=== PATIENT | male | born 1965 | race Caucasian/White ===

== ENCOUNTER → 2019-04-01 | Outpatient (CLI) | payer BC ==
[~2019-04-01] MED LIST: ASPI-1005 PO; LOSA50TA64 PO; METO25TA6 PO; ROSU10TA28 PO; WARF4TAB72 PO
== END | disposition home or self-care (01) ==
LOC: RAH 13:21
PROVIDERS: ATTEND Internal Medicine Nephrology
DX: R59.0 Localized enlarged lymph nodes (principal); J33.8 Other polyp of sinus
CPT/HCPCS: 70490

== ENCOUNTER 2020-08-06 09:22 | Inpatient (IN) | payer BC ==
[~2020-08-06] VITALS: Ht 177.8 cm; Wt 99.2 kg
[2020-08-06] MEDS ORDERED: MORPHINE 4 MG SYG ONE (09:41)
[2020-08-06] MEDS ORDERED: ONDANSETRON 4MG INJ ONE ×3 (09:41→12:30)
[2020-08-06 09:42] LABS: BASOPHILS % (AUTO) 0.1 % (0.0-5.0); LYMPHOCYTES % (AUTO) 4.3 % (21.0-51.0); MEAN CORPUSCULAR HEMOGLOBIN 29.5 pg (27.0-33.0); MEAN CORPUSCULAR HGB CONC 32.2 g/dL (32.0-36.0); MEAN CORPUSCULAR VOLUME 91.6 fL (79-99); MONOCYTES % (AUTO) 5.4 % (3.0-13.0); NEUTROPHILS % (AUTO) 89.8 % (40.0-77.0); PLATELET COUNT (AUTO) 215 K/uL (130-400); RED BLOOD CELL COUNT(AUTO) 4.04 MIL/uL (4.50-6.20); RED CELL DISTRIBUTION WIDTH 14.5 % (11.0-15.5)
[2020-08-06 09:50] LABS: APPEARANCE,URINE Cloudy (CLEAR); BILIRUBIN,URINE Small (NEGATIVE); COLOR,URINE Dark Yellow (YELLOW); GLUCOSE, URINE (UA) Negative (NEGATIVE); KETONES,URINE Trace mg/dL (NEGATIVE); LEUKOCYTE ESTERASE ,URINE Trace (NEGATIVE); NITRATE,URINE Negative (NEGATIVE); OCCULT BLOOD,URINE Negative (NEGATIVE); PROTEIN,URINE POS 2+ mg/dL (NEGATIVE)
[2020-08-06 09:53] LABS: CREATININE 2.1 mg/dL (0.5-1.5); INR 3.26 (0.85-1.15); POTASSIUM 4.8 mmol/L (3.5-5.1); PROTHROMBIN TIME 31.9 SEC (9.6-11.6)
[2020-08-06 09:57] LABS: ALBUMIN 4.1 g/dL (3.5-5.0); BILIRUBIN,TOTAL 1.1 mg/dL (0.2-1.0); TOTAL PROTEIN, SERUM 7.4 g/dL (6.0-8.3)
[2020-08-06 10:03] LABS: BACTERIA,URINE None Seen /HPF (None Seen); MUCUS,URINE Few LPF (None Seen); RBC,URINE 0-1 /HPF (0-1); SQUAMOUS EPITHELIAL CELL,UR 0-2 /HPF (0-2); WBC,URINE 0-1 /HPF (0-1)
[2020-08-06 10:04] LABS: HYALINE CASTS, URINE 0-1 /LPF (0-1 /LPF)
[2020-08-06] MEDS ORDERED: 0.9%NACL 1000ML 1,000 ML IV ONE (10:34)
[2020-08-06] MEDS ORDERED: ZOSYN 3.375GM+NS 50ML 50 ML IV ONE (10:42)
[2020-08-06] MEDS ORDERED: MORPHINE 2 MG SYG ONE (11:55)
[2020-08-06] MEDS ORDERED: ACETAMINOPHEN 325 MG TAB PO PRN (13:00)
[2020-08-06 14:29] VITALS: BP 93/56
[2020-08-06] MEDS: 0.9%NACL 1000ML 1,000 ML IV SCH (15:45)
[2020-08-06] MEDS ORDERED: LEVO5TAB29 PO (15:51)
[2020-08-06] MEDS ORDERED: METO-391 PO (15:51)
[2020-08-06] MEDS ORDERED: MULT-1333 PO (15:51)
[2020-08-06] MEDS ORDERED: FLUT9.9S16 EN (15:51)
[2020-08-06 16:08] VITALS: BP 109/70
[2020-08-06] MEDS: MORPHINE 2 MG SYG IVP PRN (18:24)
[2020-08-06 19:47] VITALS: BP 108/64
[2020-08-06] MEDS: ZOSYN 3.375GM+NS 50ML 50 ML IV SCH (20:59)
[2020-08-06] MEDS ORDERED: METOPROLOL SUCCINATE 50 MG TAB.SR.24H PO SCH (21:30)
[2020-08-07] VITALS (10 sets, daily range): BP systolic 84–135; BP diastolic 53–73
[2020-08-07] MEDS: ONDANSETRON 4MG INJ IVP PRN (02:22)
[2020-08-07] MEDS: MORPHINE 2 MG SYG IVP PRN ×2 (02:38→11:27)
[2020-08-07 05:30] LABS: BASOPHILS % (AUTO) 0.1 % (0.0-5.0); MEAN CORPUSCULAR HGB CONC 31.9 g/dL (32.0-36.0); MEAN CORPUSCULAR VOLUME 90.9 fL (79-99); MONOCYTES % (AUTO) 7.8 % (3.0-13.0); NEUTROPHILS % (AUTO) 85.3 % (40.0-77.0); PLATELET COUNT (AUTO) 203 K/uL (130-400); RED BLOOD CELL COUNT(AUTO) 2.86 MIL/uL (4.50-6.20); RED CELL DISTRIBUTION WIDTH 14.7 % (11.0-15.5); WHITE BLOOD COUNT (AUTO) 18.6 K/uL (4.8-10.8)
[2020-08-07] MEDS: ZOSYN 3.375GM+NS 50ML 50 ML IV SCH ×2 (05:56→15:06)
[2020-08-07 06:02] LABS: ALBUMIN 3.5 g/dL (3.5-5.0); CREATININE 3.1 mg/dL (0.5-1.5); MAGNESIUM 2.3 mg/dL (1.80-2.40); TOTAL PROTEIN, SERUM 6.6 g/dL (6.0-8.3)
[2020-08-07] MEDS: METOPROLOL SUCCINATE 50 MG TAB.SR.24H PO SCH (09:56)
[2020-08-07] MEDS ORDERED: PHARMACY COMMUNICATION MISC SCH (17:30)
[2020-08-07] MEDS ORDERED: HEPARIN 25,000 UNITS/250ML D5W 250 ML IV SCH (17:30)
[2020-08-07 17:33] LABS: HEMATOCRIT 19.1 % (42-54)
[2020-08-07] MEDS: HYDROMORPHONE 0.5 MG SYG (0.5MG/0.5ML) IVP PRN (17:43)
[2020-08-07 18:01] LABS: INR 4.05 (0.85-1.15); PROTHROMBIN TIME 38.9 SEC (9.6-11.6)
[2020-08-07] MEDS ORDERED: FUROSEMIDE 20MG VIAL IV SCH (18:15)
[2020-08-07] MEDS: 0.9%NACL 1000ML 1,000 ML IV SCH (18:25)
[2020-08-07] MEDS ORDERED: LYCOP PO SCH (21:00)
[2020-08-07] MEDS ORDERED: WARFARIN SODIUM 2 MG TAB PO SCH (21:00)
[2020-08-07] MEDS ORDERED: WARFARIN SODIUM 4 MG PO SCH (21:00)
[2020-08-07] MEDS ORDERED: MULTIVIT MIN PO SCH (21:00)
[2020-08-07] MEDS ORDERED: FOLIC PO SCH (21:00)
[2020-08-07] MEDS ORDERED: [UNRECOGNIZED DRUG - OTHER] PO SCH (21:00)
[2020-08-07] MEDS ORDERED: FLUTICASONE FUROATE EN SCH (21:00)
[2020-08-07] MEDS ORDERED: NON-FORMULARY MEDICATION 1 EACH (Rosuvastatin Calcium 10 MG) PO SCH (21:00)
[2020-08-07] MEDS ORDERED: VIT K PO SCH (21:00)
[2020-08-07] MEDS ORDERED: NON-FORMULARY MEDICATION 1 EACH (Levocetirizine Dihydrochloride (Xyzal) 5 MG) PO SCH (21:00)
[2020-08-07] MEDS: MEROPENEM 1 GM VIAL IVP SCH (21:38)
[2020-08-07] MEDS: FLUTICASONE PROPIONATE 50MCG/SPRAY 16 GM BOTTLE EN SCH (21:39)
[2020-08-07] MEDS: ASPIRIN 81MG CHEW TAB PO SCH (21:39)
[2020-08-07] MEDS: ATORVASTATIN 20 MG TABLET PO SCH (21:39)
[2020-08-07] MEDS: MULTIVITAMIN TABLET PO SCH (21:39)
[2020-08-08] VITALS (17 sets, daily range): BP systolic 121–143; BP diastolic 61–84
[2020-08-08 00:46] LABS: HEMATOCRIT 24.8 % (42-54)
[2020-08-08] MEDS: ONDANSETRON 4MG INJ IVP PRN ×2 (02:41→19:58)
[2020-08-08] MEDS: HYDROMORPHONE 0.5 MG SYG (0.5MG/0.5ML) IVP PRN ×3 (02:41→19:58)
[2020-08-08 04:18] LABS: HEMATOCRIT 22.1 % (42-54); MEAN CORPUSCULAR HGB CONC 33.9 g/dL (32.0-36.0); MEAN CORPUSCULAR VOLUME 88.4 fL (79-99); RED BLOOD CELL COUNT(AUTO) 2.5 MIL/uL (4.50-6.20); RED CELL DISTRIBUTION WIDTH 15.7 % (11.0-15.5); WHITE BLOOD COUNT (AUTO) 14.4 K/uL (4.8-10.8)
[2020-08-08 04:30] LABS: CREATININE 3.7 mg/dL (0.5-1.5); INR 2.48 (0.85-1.15); MAGNESIUM 2.5 mg/dL (1.80-2.40); POTASSIUM 4.7 mmol/L (3.5-5.1); PROTHROMBIN TIME 24.9 SEC (9.6-11.6)
[2020-08-08] MEDS: METOPROLOL SUCCINATE 50 MG TAB.SR.24H PO SCH (08:14)
[2020-08-08] MEDS: 0.9%NACL 1000ML 1,000 ML IV SCH ×2 (08:15→21:05)
[2020-08-08 09:06] LABS: INR 2.56 (0.85-1.15); PROTHROMBIN TIME 25.6 SEC (9.6-11.6)
[2020-08-08] MEDS ORDERED: METOPROLOL SUCCINATE 50 MG TAB.SR.24H PO SCH (18:15)
[2020-08-08] MEDS: ASPIRIN 81MG CHEW TAB PO SCH (19:44)
[2020-08-08] MEDS: MULTIVITAMIN TABLET PO SCH (19:44)
[2020-08-08] MEDS: ATORVASTATIN 20 MG TABLET PO SCH (19:44)
[2020-08-08] MEDS: FLUTICASONE PROPIONATE 50MCG/SPRAY 16 GM BOTTLE EN SCH (19:45)
[2020-08-08] MEDS ORDERED: FUROSEMIDE 20MG VIAL IV SCH (20:00)
[2020-08-08 20:02] LABS: HEMATOCRIT 22.9 % (42-54)
[2020-08-08] MEDS: MEROPENEM 1 GM VIAL IVP SCH (22:17)
[2020-08-08 23:22] LABS: HEMATOCRIT 20.6 % (42-54)
[2020-08-09] VITALS (22 sets, daily range): BP systolic 95–138; BP diastolic 50–79
[2020-08-09] MEDS: HYDROMORPHONE 0.5 MG SYG (0.5MG/0.5ML) IVP PRN ×5 (00:24→22:44)
[2020-08-09] MEDS ORDERED: FUROSEMIDE 40MG VIAL ONE (02:41)
[2020-08-09] MEDS: FUROSEMIDE 20MG VIAL IV SCH ×2 (02:45→03:06)
[2020-08-09 03:48] LABS: BASOPHILS % (AUTO) 0.1 % (0.0-5.0); HEMATOCRIT 23.5 % (42-54); LYMPHOCYTES % (AUTO) 6.7 % (21.0-51.0); MEAN CORPUSCULAR HEMOGLOBIN 29.2 pg (27.0-33.0); MEAN CORPUSCULAR HGB CONC 32.8 g/dL (32.0-36.0); MONOCYTES % (AUTO) 11.4 % (3.0-13.0); NEUTROPHILS % (AUTO) 80.7 % (40.0-77.0); PLATELET COUNT (AUTO) 146 K/uL (130-400); RED BLOOD CELL COUNT(AUTO) 2.64 MIL/uL (4.50-6.20); RED CELL DISTRIBUTION WIDTH 14.9 % (11.0-15.5)
[2020-08-09 04:03] LABS: CREATININE 2.9 mg/dL (0.5-1.5); INR 2.44 (0.85-1.15); POTASSIUM 4.7 mmol/L (3.5-5.1); PROTHROMBIN TIME 24.5 SEC (9.6-11.6)
[2020-08-09] MEDS: METOPROLOL SUCCINATE 50 MG TAB.SR.24H PO SCH (08:24)
[2020-08-09] MEDS ORDERED: FENTANYL CITRATE PF 50 MCG/1 ML 2ML VIAL ONE ×2 (09:03→21:12)
[2020-08-09] MEDS ORDERED: SODIUM BICARB 50MEQ 50ML VIAL 50 ML ONE ×2 (09:03→21:12)
[2020-08-09] MEDS ORDERED: MIDAZOLAM HCL 1 MG/ML 2ML VIAL ONE ×2 (09:03→21:12)
[2020-08-09] MEDS ORDERED: HEPARIN 10,000 UNIT/10ML (1,000 UNIT/ML) VIAL ONE (09:03)
[2020-08-09] MEDS ORDERED: IODIXANOL 320 MG/ML 100 ML VIAL ONE ×3 (09:03→21:12)
[2020-08-09] MEDS ORDERED: LIDOCAINE HCL 400MG/20ML VIAL ONE ×2 (09:05→21:12)
[2020-08-09 09:16] LABS: INR 2.39 (0.85-1.15); PROTHROMBIN TIME 24.1 SEC (9.6-11.6)
[2020-08-09] MEDS: ONDANSETRON 4MG INJ IVP PRN (12:30)
[2020-08-09] MEDS ORDERED: BENZONATATE 100 MG CAPSULE PO PRN (12:45)
[2020-08-09] MEDS ORDERED: BENZONATATE 100 MG CAPSULE PO ONE (13:47)
[2020-08-09] MEDS: 0.9%NACL 1000ML 1,000 ML IV SCH (16:47)
[2020-08-09] MEDS: GUAIFENESIN-DM 200/20 MG 10 ML PO PRN (16:48)
[2020-08-09 17:19] LABS: HEMATOCRIT 20.7 % (42-54)
[2020-08-09] MEDS ORDERED: 0.9% NACL 500ML IV.SOLN 500 ML IV ONE ×2 (18:13→21:28)
[2020-08-09 19:04] LABS: INR 2.39 (0.85-1.15); PROTHROMBIN TIME 24.1 SEC (9.6-11.6)
[2020-08-09] MEDS: MEROPENEM 1 GM VIAL IVP SCH (19:45)
[2020-08-09] MEDS: DOCUSATE SODIUM 100 MG CAP PO SCH (19:45)
[2020-08-09] MEDS: FUROSEMIDE 40MG VIAL IV SCH (19:45)
[2020-08-09] MEDS: ATORVASTATIN 20 MG TABLET PO SCH (19:46)
[2020-08-09] MEDS: FLUTICASONE PROPIONATE 50MCG/SPRAY 16 GM BOTTLE EN SCH (19:46)
[2020-08-09] MEDS ORDERED: HYDROMORPHONE PCA 10 MG/50 ML 50 ML IV PRN (22:30)
[2020-08-09 22:59] LABS: HEMATOCRIT 22.1 % (42-54)
[2020-08-10] VITALS (17 sets, daily range): BP systolic 98–147; BP diastolic 55–91
[2020-08-10] MEDS: 0.9%NACL 1000ML 1,000 ML IV SCH ×2 (00:29→12:05)
[2020-08-10] MEDS: HYDROMORPHONE 0.5 MG SYG (0.5MG/0.5ML) IVP PRN ×2 (01:47→09:43)
[2020-08-10] MEDS: GUAIFENESIN-DM 200/20 MG 10 ML PO PRN (01:50)
[2020-08-10] MEDS: FUROSEMIDE 20MG VIAL IV SCH ×4 (02:45→22:45)
[2020-08-10 03:44] LABS: BASOPHILS % (AUTO) 0.2 % (0.0-5.0); EOSINOPHILS % (AUTO) 0.7 % (0.0-8.0); HEMATOCRIT 21.2 % (42-54); LYMPHOCYTES % (AUTO) 6.5 % (21.0-51.0); MEAN CORPUSCULAR HEMOGLOBIN 30.1 pg (27.0-33.0); MEAN CORPUSCULAR VOLUME 88.7 fL (79-99); MONOCYTES % (AUTO) 11.2 % (3.0-13.0); NEUTROPHILS % (AUTO) 80.8 % (40.0-77.0); PLATELET COUNT (AUTO) 143 K/uL (130-400); RED BLOOD CELL COUNT(AUTO) 2.39 MIL/uL (4.50-6.20); RED CELL DISTRIBUTION WIDTH 14.7 % (11.0-15.5); WHITE BLOOD COUNT (AUTO) 10.7 K/uL (4.8-10.8)
[2020-08-10 04:02] LABS: INR 2.02 (0.85-1.15); PROTHROMBIN TIME 20.7 SEC (9.6-11.6)
[2020-08-10 04:05] LABS: CREATININE 2.1 mg/dL (0.5-1.5); MAGNESIUM 2.5 mg/dL (1.80-2.40); POTASSIUM 4.3 mmol/L (3.5-5.1)
[2020-08-10] MEDS: DOCUSATE SODIUM 100 MG CAP PO SCH ×2 (08:33→22:24)
[2020-08-10] MEDS: METOPROLOL SUCCINATE 50 MG TAB.SR.24H PO SCH (09:12)
[2020-08-10 12:07] LABS: HEMATOCRIT 21.2 % (42-54)
[2020-08-10 12:23] LABS: PROTHROMBIN TIME 20.5 SEC (9.6-11.6)
[2020-08-10 15:39] LABS: HEMATOCRIT 21.5 % (42-54)
[2020-08-10 15:47] LABS: CREATININE 1.6 mg/dL (0.5-1.5); POTASSIUM 4.2 mmol/L (3.5-5.1)
[2020-08-10] MEDS: FUROSEMIDE 40MG VIAL IV SCH (16:59)
[2020-08-10] MEDS: FLUTICASONE PROPIONATE 50MCG/SPRAY 16 GM BOTTLE EN SCH (21:00)
[2020-08-10 22:13] LABS: HEMATOCRIT 22.6 % (42-54)
[2020-08-10 22:22] LABS: CREATININE 1.6 mg/dL (0.5-1.5)
[2020-08-10 22:24] LABS: INR 1.67 (0.85-1.15); PROTHROMBIN TIME 17.4 SEC (9.6-11.6)
[2020-08-10] MEDS: MEROPENEM 1 GM VIAL IVP SCH (22:24)
[2020-08-10] MEDS: ATORVASTATIN 20 MG TABLET PO SCH (22:24)
[2020-08-11] VITALS (14 sets, daily range): BP systolic 106–139; BP diastolic 60–86
[2020-08-11] MEDS: 0.9%NACL 1000ML 1,000 ML IV SCH ×2 (01:55→15:08)
[2020-08-11 04:18] LABS: HEMATOCRIT 21.6 % (42-54); MEAN CORPUSCULAR HEMOGLOBIN 29.2 pg (27.0-33.0); MEAN CORPUSCULAR HGB CONC 32.9 g/dL (32.0-36.0); MEAN CORPUSCULAR VOLUME 88.9 fL (79-99); NUCLEATED RED BLOOD CELLS 0.2 % (0.0-0.19); RED BLOOD CELL COUNT(AUTO) 2.43 MIL/uL (4.50-6.20); RED CELL DISTRIBUTION WIDTH 14.8 % (11.0-15.5); WHITE BLOOD COUNT (AUTO) 11.4 K/uL (4.8-10.8)
[2020-08-11 04:30] LABS: ALBUMIN 2.5 g/dL (3.5-5.0); CREATININE 1.6 mg/dL (0.5-1.5); POTASSIUM 4.3 mmol/L (3.5-5.1); TOTAL PROTEIN, SERUM 5.8 g/dL (6.0-8.3)
[2020-08-11 07:18] LABS: ABG BASE EXCESS 2.2 mmol/L (-2.0-3.0); ABG HCO3 26.2 mmol/L (21.0-28.0); ABG OXYGEN SATURATION 95.2 % (95.0-99.0); ABG PCO2 39 mmHg (35-48)
[2020-08-11] MEDS ORDERED: FUROSEMIDE 40MG VIAL IV SCH (09:15)
[2020-08-11] MEDS: METOPROLOL SUCCINATE 50 MG TAB.SR.24H PO SCH (09:37)
[2020-08-11] MEDS: DOCUSATE SODIUM 100 MG CAP PO SCH ×2 (09:37→20:35)
[2020-08-11 10:36] LABS: HEMATOCRIT 22.1 % (42-54)
[2020-08-11 10:46] LABS: INR 1.54 (0.85-1.15); PROTHROMBIN TIME 16.1 SEC (9.6-11.6)
[2020-08-11 11:07] LABS: CREATININE 1.5 mg/dL (0.5-1.5); POTASSIUM 4.1 mmol/L (3.5-5.1)
[2020-08-11] MEDS: TRAZODONE HCL 50 MG TAB PO SCH (20:35)
[2020-08-11] MEDS: ATORVASTATIN 20 MG TABLET PO SCH (20:35)
[2020-08-11] MEDS: MEROPENEM 1 GM VIAL IVP SCH (20:36)
[2020-08-11] MEDS: FLUTICASONE PROPIONATE 50MCG/SPRAY 16 GM BOTTLE EN SCH (21:00)
[2020-08-11 21:02] LABS: CREATININE 1.5 mg/dL (0.5-1.5); POTASSIUM 3.7 mmol/L (3.5-5.1)
[2020-08-11 21:06] LABS: INR 1.46 (0.85-1.15); PROTHROMBIN TIME 15.4 SEC (9.6-11.6)
[2020-08-12] VITALS (19 sets, daily range): BP systolic 104–139; BP diastolic 59–89
[2020-08-12] MEDS: WARFARIN SODIUM 2 MG TAB PO SCH ×2 (00:22→22:36)
[2020-08-12 04:19] LABS: INR 1.38 (0.85-1.15); PROTHROMBIN TIME 14.6 SEC (9.6-11.6)
[2020-08-12] MEDS: 0.9%NACL 1000ML 1,000 ML IV SCH ×2 (05:05→17:35)
[2020-08-12] MEDS: ONDANSETRON 4MG INJ IVP PRN (07:41)
[2020-08-12] MEDS ORDERED: WARFARIN SODIUM 1 MG TAB PO SCH (08:45)
[2020-08-12] MEDS: DOCUSATE SODIUM 100 MG CAP PO SCH ×2 (09:18→20:21)
[2020-08-12] MEDS: METOPROLOL SUCCINATE 50 MG TAB.SR.24H PO SCH (09:18)
[2020-08-12] MEDS ORDERED: FUROSEMIDE 20MG VIAL ONE (12:15)
[2020-08-12] MEDS ORDERED: FUROSEMIDE 20MG VIAL IV SCH (12:30)
[2020-08-12] MEDS: ATORVASTATIN 20 MG TABLET PO SCH (20:21)
[2020-08-12] MEDS: TRAZODONE HCL 50 MG TAB PO SCH (20:21)
[2020-08-12] MEDS: MEROPENEM 1 GM VIAL IVP SCH (20:22)
[2020-08-12] MEDS: FLUTICASONE PROPIONATE 50MCG/SPRAY 16 GM BOTTLE EN SCH (20:22)
[2020-08-12] MEDS: KCL 20 MEQ ERTAB PO SCH (20:22)
[2020-08-13 04:47] LABS: BASOPHILS % (AUTO) 0.3 % (0.0-5.0); HEMATOCRIT 25.2 % (42-54); LYMPHOCYTES % (AUTO) 5.8 % (21.0-51.0); MEAN CORPUSCULAR HEMOGLOBIN 29.2 pg (27.0-33.0); MEAN CORPUSCULAR HGB CONC 32.9 g/dL (32.0-36.0); MEAN CORPUSCULAR VOLUME 88.7 fL (79-99); MONOCYTES % (AUTO) 10.4 % (3.0-13.0); NEUTROPHILS % (AUTO) 80.2 % (40.0-77.0); NUCLEATED RED BLOOD CELLS 0.2 % (0.0-0.19); PLATELET COUNT (AUTO) 250 K/uL (130-400); RED BLOOD CELL COUNT(AUTO) 2.84 MIL/uL (4.50-6.20); RED CELL DISTRIBUTION WIDTH 14.7 % (11.0-15.5); WHITE BLOOD COUNT (AUTO) 11.5 K/uL (4.8-10.8)
[2020-08-13 04:57] LABS: INR 1.98 (0.85-1.15); PROTHROMBIN TIME 20.3 SEC (9.6-11.6)
[2020-08-13 04:58] LABS: CREATININE 1.4 mg/dL (0.5-1.5); MAGNESIUM 2.2 mg/dL (1.80-2.40); POTASSIUM 3.9 mmol/L (3.5-5.1)
[2020-08-13 05:54] VITALS: BP 132/86
[2020-08-13] MEDS: 0.9%NACL 1000ML 1,000 ML IV SCH (06:40)
[2020-08-13 09:05] VITALS: BP 130/84
[2020-08-13] MEDS: KCL 20 MEQ ERTAB PO SCH ×2 (09:17→20:10)
[2020-08-13] MEDS: METOPROLOL TARTRATE 50 MG TAB PO SCH ×2 (09:17→20:10)
[2020-08-13] MEDS: DOCUSATE SODIUM 100 MG CAP PO SCH ×2 (09:17→20:10)
[2020-08-13] MEDS ORDERED: FUROSEMIDE 20MG VIAL IV SCH (12:30)
[2020-08-13 14:57] VITALS: BP 126/82
[2020-08-13 20:08] VITALS: BP 131/85
[2020-08-13] MEDS: MEROPENEM 1 GM VIAL IVP SCH (20:10)
[2020-08-13] MEDS: ATORVASTATIN 20 MG TABLET PO SCH (20:10)
[2020-08-13] MEDS: TRAZODONE HCL 50 MG TAB PO SCH (20:11)
[2020-08-13] MEDS: FLUTICASONE PROPIONATE 50MCG/SPRAY 16 GM BOTTLE EN SCH (20:19)
[2020-08-13] MEDS ORDERED: WARFARIN SODIUM 1 MG TAB PO SCH (22:00)
[2020-08-14] VITALS (7 sets, daily range): BP systolic 119–140; BP diastolic 80–91
[2020-08-14 04:21] LABS: BASOPHILS % (AUTO) 0.5 % (0.0-5.0); EOSINOPHILS % (AUTO) 1.9 % (0.0-8.0); HEMATOCRIT 26.9 % (42-54); LYMPHOCYTES % (AUTO) 8.3 % (21.0-51.0); MEAN CORPUSCULAR HEMOGLOBIN 28.1 pg (27.0-33.0); MEAN CORPUSCULAR HGB CONC 31.6 g/dL (32.0-36.0); MEAN CORPUSCULAR VOLUME 89.1 fL (79-99); MONOCYTES % (AUTO) 9.5 % (3.0-13.0); NEUTROPHILS % (AUTO) 76.9 % (40.0-77.0); PLATELET COUNT (AUTO) 291 K/uL (130-400); RED BLOOD CELL COUNT(AUTO) 3.02 MIL/uL (4.50-6.20); RED CELL DISTRIBUTION WIDTH 14.5 % (11.0-15.5); WHITE BLOOD COUNT (AUTO) 10.9 K/uL (4.8-10.8)
[2020-08-14 04:26] LABS: CREATININE 1.3 mg/dL (0.5-1.5)
[2020-08-14 04:48] LABS: INR 2.1 (0.85-1.15); PROTHROMBIN TIME 21.4 SEC (9.6-11.6)
[2020-08-14] MEDS: DOCUSATE SODIUM 100 MG CAP PO SCH ×2 (10:43→19:51)
[2020-08-14] MEDS: METOPROLOL TARTRATE 50 MG TAB PO SCH ×2 (10:43→19:51)
[2020-08-14] MEDS: KCL 20 MEQ ERTAB PO SCH ×2 (10:44→19:51)
[2020-08-14] MEDS: ONDANSETRON 4MG INJ IVP PRN (18:42)
[2020-08-14] MEDS ORDERED: WARFARIN SODIUM 2 MG TAB PO SCH (19:00)
[2020-08-14] MEDS ORDERED: WARF4TAB8 PO (19:06)
[2020-08-14] MEDS ORDERED: LOSA100T58 PO (19:06)
[2020-08-14] MEDS: ATORVASTATIN 20 MG TABLET PO SCH (19:51)
[2020-08-14] MEDS: TRAZODONE HCL 50 MG TAB PO SCH (19:51)
[2020-08-14] MEDS: FLUTICASONE PROPIONATE 50MCG/SPRAY 16 GM BOTTLE EN SCH (19:52)
[2020-08-14] MEDS: MEROPENEM 1 GM VIAL IVP SCH (21:04)
[2020-08-15 04:00] VITALS: BP 124/82
[2020-08-15 04:37] LABS: HEMATOCRIT 26.2 % (42-54); MEAN CORPUSCULAR HEMOGLOBIN 28.9 pg (27.0-33.0); MEAN CORPUSCULAR HGB CONC 32.4 g/dL (32.0-36.0); MEAN CORPUSCULAR VOLUME 89.1 fL (79-99); RED BLOOD CELL COUNT(AUTO) 2.94 MIL/uL (4.50-6.20); RED CELL DISTRIBUTION WIDTH 14.6 % (11.0-15.5); WHITE BLOOD COUNT (AUTO) 11.1 K/uL (4.8-10.8)
[2020-08-15 04:47] LABS: INR 2.14 (0.85-1.15); PROTHROMBIN TIME 21.8 SEC (9.6-11.6)
[2020-08-15 04:54] LABS: CREATININE 1.2 mg/dL (0.5-1.5); POTASSIUM 4.6 mmol/L (3.5-5.1)
[2020-08-15 08:00] VITALS: BP 134/86
[2020-08-15] MEDS: METOPROLOL TARTRATE 50 MG TAB PO SCH (09:55)
[2020-08-15] MEDS: KCL 20 MEQ ERTAB PO SCH (09:55)
[2020-08-15] MEDS: DOCUSATE SODIUM 100 MG CAP PO SCH (09:56)
[2020-08-15 12:00] VITALS: BP 136/83
[2020-08-15] MEDS ORDERED: WARFARIN SODIUM 2 MG TAB PO SCH (21:00)
== END 2020-08-15 15:28 | DRG 853 ==
LOC: EDH 09:22 → EDHIP 12:35 → 3AH 14:21 → 2DH 08-07 19:34 → 4BH 08-12 23:06
PROVIDERS: ADMIT Internal Medicine Infectious Disease; ATTEND Internal Medicine Infectious Disease
PROC: 30233N1 Transfusion of Nonautologous Red Blood Cells into Peripheral Vein, Percutaneous Approach (ICD-10-PCS; 2020-08-07)
PROC: 30233K1 Transfusion of Nonautologous Frozen Plasma into Peripheral Vein, Percutaneous Approach (ICD-10-PCS; 2020-08-08)
PROC: 04LA3DZ Occlusion of Left Renal Artery with Intraluminal Device, Percutaneous Approach (ICD-10-PCS; principal; 2020-08-09)
PROC: B417YZZ Fluoroscopy of Left Renal Artery using Other Contrast (ICD-10-PCS; 2020-08-09)
PROC: B410YZZ Fluoroscopy of Abdominal Aorta using Other Contrast (ICD-10-PCS; 2020-08-09)
PROC: B410YZZ Fluoroscopy of Abdominal Aorta using Other Contrast (ICD-10-PCS; 2020-08-09)
PROC: B417YZZ Fluoroscopy of Left Renal Artery using Other Contrast (ICD-10-PCS; 2020-08-09)
PROC: B31FYZZ Fluoroscopy of Left Vertebral Artery using Other Contrast (ICD-10-PCS; 2020-08-09)
PROC: 5A09357 Assistance with Respiratory Ventilation, Less than 24 Consecutive Hours, Continuous Positive Airway Pressure (ICD-10-PCS; 2020-08-10)
PROC: 5A09357 Assistance with Respiratory Ventilation, Less than 24 Consecutive Hours, Continuous Positive Airway Pressure (ICD-10-PCS; 2020-08-11)
PROC: 5A09357 Assistance with Respiratory Ventilation, Less than 24 Consecutive Hours, Continuous Positive Airway Pressure (ICD-10-PCS; 2020-08-12)
PROC: 5A09357 Assistance with Respiratory Ventilation, Less than 24 Consecutive Hours, Continuous Positive Airway Pressure (ICD-10-PCS; 2020-08-13)
DX: A41.9 Sepsis, unspecified organism (principal); K66.1 Hemoperitoneum; N17.0 Acute kidney failure with tubular necrosis; I50.33 Acute on chronic diastolic (congestive) heart failure; R57.8 Other shock; D62 Acute posthemorrhagic anemia; I13.0 Hypertensive heart and chronic kidney disease with heart failure and stage 1 through stage 4 chronic kidney disease, or unspecified chronic kidney disease; N18.4 Chronic kidney disease, stage 4 (severe); D68.32 Hemorrhagic disorder due to extrinsic circulating anticoagulants; N12 Tubulo-interstitial nephritis, not specified as acute or chronic; J98.11 Atelectasis; I47.1 Supraventricular tachycardia; G93.40 Encephalopathy, unspecified; G45.9 Transient cerebral ischemic attack, unspecified; E87.1 Hypo-osmolality and hyponatremia; T45.515A Adverse effect of anticoagulants, initial encounter; N20.0 Calculus of kidney; D72.829 Elevated white blood cell count, unspecified; E66.9 Obesity, unspecified; E78.5 Hyperlipidemia, unspecified; R53.81 Other malaise; F17.210 Nicotine dependence, cigarettes, uncomplicated; E78.00 Pure hypercholesterolemia, unspecified; I25.10 Atherosclerotic heart disease of native coronary artery without angina pectoris; G47.33 Obstructive sleep apnea (adult) (pediatric); Z20.822 Contact with and (suspected) exposure to COVID-19; N28.89 Other specified disorders of kidney and ureter; Z95.2 Presence of prosthetic heart valve; Z79.01 Long term (current) use of anticoagulants; Z87.442 Personal history of urinary calculi; Z79.899 Other long term (current) drug therapy; Z68.31 Body mass index [BMI] 31.0-31.9, adult; Z86.79 Personal history of other diseases of the circulatory system; Y92.89 Other specified places as the place of occurrence of the external cause; Z99.81 Dependence on supplemental oxygen
CPT/HCPCS: 36245; 36251; 36415; 36430; 36600; 37244; 71045; 74176; 75705; 76770; 80048; 80053; 81001; 82150; 82803; 82948; 83690; 83735; 85014; 85018; 85025; 85027; 85610; 85730; 86850; 86900; 86901; 86923; 86927; 87040; 87077; 87088; 87186; 87426; 93005; 93306; 93308; 93356; 97039; 99156; 99157; C1769; C1887; C1894; G0378; J1170; J1644; J1940; J2185; J2250; J2270; J2405; J2543; J3010; J3490; J7030; J7040; P9016; P9017; Q9967; U0003

== ENCOUNTER 2021-06-03 09:29 | Emergency (ER) | payer BC ==
[~2021-06-03] VITALS: Ht 177.8 cm; Wt 100.7 kg
[~2021-06-03 09:29] MED LIST changes: +FLUT9.9S16 EN; +LEVO5TAB29 PO; +LOSA100T58 PO; -LOSA50TA64 PO; +METO-391 PO; -METO25TA6 PO; +MULT-1333 PO; +WARF4TAB8 PO
[2021-06-03 11:07] VITALS: BP 112/81
[2021-06-03 12:11] LABS: BASOPHILS % (AUTO) 0.6 % (0.0-5.0); EOSINOPHILS % (AUTO) 0.6 % (0.0-8.0); HEMATOCRIT 47.2 % (42-54); LYMPHOCYTES % (AUTO) 16.8 % (21.0-51.0); MEAN CORPUSCULAR HEMOGLOBIN 29.4 pg (27.0-33.0); MEAN CORPUSCULAR HGB CONC 31.8 g/dL (32.0-36.0); MEAN CORPUSCULAR VOLUME 92.4 fL (79-99); NEUTROPHILS % (AUTO) 68.8 % (40.0-77.0); PLATELET COUNT (AUTO) 153 K/uL (130-400); RED BLOOD CELL COUNT(AUTO) 5.11 MIL/uL (4.50-6.20); RED CELL DISTRIBUTION WIDTH 13.8 % (11.0-15.5); WHITE BLOOD COUNT (AUTO) 5.2 K/uL (4.8-10.8)
[2021-06-03 12:17] LABS: CREATININE 1.3 mg/dL (0.5-1.5); POTASSIUM 4.8 mmol/L (3.5-5.1)
[2021-06-03 12:22] LABS: ALBUMIN 4.4 g/dL (3.5-5.0); BILIRUBIN,TOTAL 0.6 mg/dL (0.2-1.0); CRP QUANTITATIVE 39.1 mg/L (0.00-9.0); INR 1.48 (0.85-1.15); PROTHROMBIN TIME 15.6 SEC (9.6-11.6); TOTAL PROTEIN, SERUM 8.1 g/dL (6.0-8.3)
[2021-06-03 12:23] LABS: PARTIAL THROMBOPLASTIN TIME 39.1 SEC (26.3-35.5)
[2021-06-03 13:16] LABS: ABG BASE EXCESS -0.4 mmol/L (-2.0-3.0); ABG HCO3 24.3 mmol/L (21.0-28.0); ABG OXYGEN SATURATION 94.4 % (95.0-99.0); ABG PCO2 40 mmHg (35-48)
== END 2021-06-03 14:15 | disposition home or self-care (01) ==
LOC: EDH 09:29
DX: U07.1 COVID-19 (principal); J06.9 Acute upper respiratory infection, unspecified; Z79.01 Long term (current) use of anticoagulants; Z79.82 Long term (current) use of aspirin; Z79.899 Other long term (current) drug therapy; Z95.2 Presence of prosthetic heart valve
CPT/HCPCS: 36415; 36600; 71045; 80053; 82550; 82803; 83605; 84484; 85025; 85378; 85610; 85730; 86140; 87635; 87804 ×2; 93005; 99284; C9803

== ENCOUNTER 2022-11-28 20:08 | Emergency (ER) | payer BC ==
[~2022-11-28] VITALS: Ht 172.7 cm; Wt 106.1 kg
[~2022-11-28 20:08] MED LIST changes: -LOSA100T58 PO; +LOSA100T59 PO
[2022-11-28 20:28] VITALS: BP 155/100; PULSE 62; RESP 20
[2022-11-28 22:55] LABS: BASOPHILS % (AUTO) 1.1 % (0.0-5.0); EOSINOPHILS % (AUTO) 1.9 % (0.0-8.0); HEMATOCRIT 41.9 % (42-54); LYMPHOCYTES % (AUTO) 25.9 % (21.0-51.0); MEAN CORPUSCULAR HEMOGLOBIN 28.9 pg (27.0-33.0); MEAN CORPUSCULAR VOLUME 90.3 fL (79-99); MONOCYTES % (AUTO) 7.2 % (3.0-13.0); NEUTROPHILS % (AUTO) 63.5 % (40.0-77.0); PLATELET COUNT (AUTO) 159 K/uL (130-400); RED BLOOD CELL COUNT(AUTO) 4.64 MIL/uL (4.50-6.20); RED CELL DISTRIBUTION WIDTH 14.2 % (11.0-15.5); WHITE BLOOD COUNT (AUTO) 5.7 K/uL (4.8-10.8)
[2022-11-28 23:00] LABS: INR 2.61 (0.85-1.15); PROTHROMBIN TIME 28.4 SEC (9.6-11.6)
[2022-11-28 23:02] LABS: PARTIAL THROMBOPLASTIN TIME 51.8 SEC (26.3-35.5)
[2022-11-28 23:03] LABS: APPEARANCE,URINE CLEAR (CLEAR); BILIRUBIN,URINE NEGATIVE (NEGATIVE); COLOR,URINE LIGHT-YELLOW (YELLOW); GLUCOSE, URINE (UA) NEGATIVE (NEGATIVE); KETONES,URINE NEGATIVE (NEGATIVE); LEUKOCYTE ESTERASE ,URINE NEGATIVE Leu/uL (NEGATIVE); NITRATE,URINE NEGATIVE (NEGATIVE); OCCULT BLOOD,URINE LARGE (NEGATIVE); PROTEIN,URINE 10 mg/dL (NEGATIVE); UROBILINOGEN,URINE 0.2 mg/dL (0.2-1.0)
[2022-11-28 23:04] LABS: ALBUMIN 3.8 g/dL (3.5-5.0); POTASSIUM 3.8 mmol/L (3.5-5.1); TOTAL PROTEIN, SERUM 6.7 g/dL (6.0-8.3)
[2022-11-28 23:13] LABS: RBC,URINE TNTC /HPF (0-1)
== END 2022-11-29 01:44 | disposition home or self-care (01) ==
LOC: EDH 20:08
DX: R31.9 Hematuria, unspecified (principal); E78.00 Pure hypercholesterolemia, unspecified; I10 Essential (primary) hypertension; Z79.01 Long term (current) use of anticoagulants; Z79.82 Long term (current) use of aspirin; Z79.899 Other long term (current) drug therapy
CPT/HCPCS: 36415; 74176; 80053; 81001; 85025; 85610; 85730; 87088

== ENCOUNTER → 2023-02-20 | Outpatient (CLI) | payer BC | END | disposition home or self-care (01) | LOC: RAH 13:20 | PROVIDERS: ATTEND Urology | DX: N28.1 Cyst of kidney, acquired (principal); R31.0 Gross hematuria | CPT/HCPCS: 76770 ==